=== PATIENT | female | born 1945 | race Caucasian/White ===

== ENCOUNTER 2019-08-20 17:41 | Observation (INO) | payer OTHER ==
--- OUTSIDE RECORDS SUMMARY | 2019-08-20 17:45 | XMS REPORT ---
:1945 [facility] Address [address] [place] [address] Dr. Cabrera[address] [place] [id number] Care Team Providers Name Role Phone Unavailable Unavailable Unavailable Problems This patient has no known problems. Allergies, Adverse Reactions, Alerts This patient has no known allergies or adverse reactions. Medications This patient has no known medications.
--- OUTSIDE RECORDS SUMMARY | 2019-08-20 17:46 | XMS REPORT ---
:1945 Author Organization [employer] Care Team Providers Name Role Phone Lita Camara Provider Role Unavailable Allergies, Adverse Reactions, Alerts Substance Reaction Event Type N.K.D.A. Info Not Available Non Drug Allergy Problems Problem Type Condition Code Onset Dates Condition Status Problem Osteoarthritis involving multiple M15.9 Active joints on both sides of body Problem Controlled diabetes mellitus type E11.9 Active II without complication Problem Disorder of adrenal gland E27.9 Active Problem Spasm of thoracic back muscle M62.830 Active Problem Chronic kidney disease, stage III N18.3 Active (moderate) Assessment Type 2 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 disease Problem Morbid obesity E66.01 Active Problem Acute idiopathic gout of right foot M10.071 Active Problem Abnormal kidney function study R94.4 Active Problem Type 2 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 disease Problem Morbid obesity with body mass index E66.01 Active (BMI) of 40.0 or higher Problem Edema R60.9 Active Problem Atrial fibrillation I48.91 Active Problem SOB (shortness of breath) R06.02 Active Problem Depression F32.9 Active Problem Unsteady gait R26.81 Active Problem Sciatica M54.30 Active Problem Mass of adrenal gland E27.9 Active Problem Iron deficiency anemia D50.9 Active Problem Anticoagulant long-term use Z79.01 Active Problem Liver mass K76.9 Active Medications Medication Code Code Instructions Start End Status Dosage System Date Date Levothyroxine [facility] 85931251416 100 MCG Orally Active 1 tablet Sodium Once a day on an empty stomach in the morning Furosemide ND 67537381192 80 MG Orally Active 1 1/2 Once a day tablet Vitamin D ND 10187969108 2000 UNIT Active 1 tablet Orally Once a day Stool Softener ND 78574512003 100 MG Orally Active 1 capsule Once a day as needed Coumadin ND 12256964662 1 MG Orally Active 1/2 tablet Once a day NovoLIN 70/30 [facility] 25774627313 (70-30) 100 Oct 29, Active 4 units FlexPen UNIT/ML 2018 Subcutaneous BID BuPROPion HCl ER [facility] 53337300096 150MG Orally Active take one (XL) Once a day tablet by mouth once daily GlipiZIDE ND 36339304078 5 MG Orally Active 1 tablet Once a day Spironolactone [facility] 59624032460 25 MG Orally Active 2 tablets Once a day with food Turmeric [facility] 52856257125 500 MG Orally Active not defined Acetaminophen ND 21046675063 500 MG Orally Active 2 capsules tid as needed Allopurinol [facility] 99059822425 100 MG Orally Active 1 tablet Once a day Losartan [facility] 87829070393 25 MG Orally Active 1/2 tablet Potassium Once a day Sotalol HCl [facility] 69305139395 80 MG Orally Active 1 tablet every 12 hrs Coumadin [facility] 51796007899 6 MG Orally Active 1 tablet Once a day Ventolin HFA [facility] 78240570250 108 (90 Base) February 07, Active 2 puffs as MCG/ACT 2018 needed Inhalation every 6 hrs Results Name Result Date Reference Range Unit Abnormality Flag HEMOGLOBIN A1C ----A1C 6.6 [id number] Summary Purpose [employer] Submission
[2019-08-20 18:52] LABS: Absolute Lymphocytes (CBC) 1.5 K/uL (0.7-4.9); Basophils % 0.8 % (0-1.3); Hematocrit 36.8 % (36.0-45.0); Lymphocytes % 24.4 % (15.3-44.8); MPV 9.1 fL (7.6-11.3); RBC Red Blood Cell Count 4.19 M/uL (3.86-4.86)
[2019-08-20 18:53] LABS: Albumin 3.6 g/dL (3.4-5.0); Bilirubin Total 0.4 mg/dL (0.2-1.0); Phosphorus 3.3 mg/dL (2.5-4.9); Potassium 3.7 mmol/L (3.5-5.1); Protein, Total 7.8 g/dL (6.4-8.2)
[2019-08-20] MEDS ORDERED: NA CHLORIDE 0.9% 1,000 ML IV SCH (19:00)
[2019-08-20 19:18] LABS: Urine Appearance CLEAR; Urine Bilirubin NEGATIVE (NEG); Urine Blood NEGATIVE (NEG); Urine Color YELLOW; Urine Glucose NEGATIVE (NEG); Urine Protein NEGATIVE (NEG); Urine Urobilinogen 0.2 mg/dL (0.2-1.0)
--- NOTE | 2019-08-20 19:23 | RAD REPORT ---
EXAM DESCRIPTION: US - Renal Ultrasound-Complete - 08/20/2019 6:57 pm CLINICAL HISTORY: Acute kidney failure COMPARISON: Renal ultrasound April 2019 FINDINGS: The right kidney measures approximately 10 x 6 x 5 cm. The left kidney measures approxima tely 12 x 5 x 4 cm. Renal cortical thickness and echogenicity are normal. No hydronephrosis or suspic ious renal mass. Bladder is fully contracted limiting assessment. IMPRESSION: No hydronephrosis or suspicious renal mass. No other significant findings.
[2019-08-20 19:39] LABS: Urine Bacteria <20 /HPF (<20); Urine Culture Reflex Order NOT NEEDED; Urine RBC NONE SEEN /HPF (NONE SEEN)
[2019-08-20 21:08] VITALS: BMI 44.0
[2019-08-21 04:54] LABS: Albumin 3.4 g/dL (3.4-5.0); Magnesium 2.2 mg/dL (1.8-2.4); Phosphorus 3.9 mg/dL (2.5-4.9); Thyroid Stimulating Hormone 3.27 uIU/mL (0.360-3.740)
[2019-08-21] MEDS ORDERED: MELATONIN 3 MG TABLET PO PRN (07:28)
[2019-08-21] MEDS ORDERED: ACETAMINOPHEN 500 MG TAB PO PRN (07:28)
--- NOTE | 2019-08-21 07:45 | P.HP ---
Certification for Inpatient Patient admitted to: Observation With expected LOS: <2 Midnights Patient will require the following post-hospital care: None Practitioner: I am a practitioner with admitting privileges, knowledge of patient current condition, hospital course, and medical plan of care. Services: Services provided to patient in accordance with Admission requirements found in Title 42 Section 412.3 of the Code of Federal Regulations Patient History Date of Service: 08/20/19 Reason for admission: Acute on chronic kidney disease History of Present Illness: Patient is a 74-year-old female who came to the hospital with acute renal insufficiency. Patient has a history of chronic kidney disease. She has been on diuretics including Lasix and metolazone. Her renal function has fluctuated over the last few months. Her creatinine is elevated and she has significant uremia. She was admitted to the hospital for hydration and for further evaluation. Nephrology has been consulted. Renal ultrasound has been ordered. Patient is feeling well but she states that she has had dysuria and she has been lethargic more so than lately. Allergies No Known Allergies Allergy (Unverified 08/10/12 16:07) Home Medications: Acetaminophen 1,000 mg PO TID 08/20/19 Bupropion HCl [Bupropion Xl] 150 mg PO DAILY 08/20/19 Cholecalciferol (Vitamin D3) [Vitamin D3] 2,000 unit PO DAILY 08/20/19 Docusate Sodium [Stool Softener] 250 mg PO BEDTIME 08/20/19 Furosemide 40 mg PO DAILY 6PM 08/20/19 Furosemide 80 mg PO DAILY 08/20/19 Insulin NPH Hum/Reg Insulin Hm [Novolin 70-30 Flexpen] 11 units SQ BIDWM Levothyroxine [Synthroid*] 0.1 mg PO [id number] 08/20/19 Sotalol HCl [Betapace*] 80 mg PO BID 08/20/19 Turmeric Root Extract [Turmeric Curcumin] 500 mg PO TID 08/20/19 Warfarin Sodium [Coumadin*] 6.5 mg PO BEDTIME 08/20/19 allopurinoL [Allopurinol] 100 mg PO DAILY 08/20/19 metOLazone [Metolazone] 5 mg PO SEECOM 08/20/19 - Past Medical/Surgical History Has patient received pneumonia vaccine in the past: Yes Diabetic: Yes -: DMII -: Sleep Apnea -: CHF -: Atrial fibrillation -: Chronic bronchitis -: Cholecystectomy - Family History Father Medical History: Cancer Mother Medical History: Diabetes, Stroke, Cancer Brother Medical History: Heart disease, Cancer - Social History Smoking Status: Former smoker Alcohol use: No CD- Drugs: No Caffeine use: Yes Place of Residence: Home Review of Systems 10-point ROS is otherwise unremarkable Physical Examination - Vital Signs Temperature: 97.5 F Blood Pressure: 131/53 Pulse: 52 Respirations: 16 Pulse Ox (%): 99 - Physical Exam General: Alert, In no apparent distress, Oriented x3 HEENT: Atraumatic, PERRLA, Mucous membr. moist/pink, EOMI, Sclerae nonicteric Neck: Supple, 2+ carotid pulse no bruit, No LAD, Without JVD or thyroid abnormality Respiratory: Clear to auscultation bilaterally, Normal air movement Cardiovascular: Regular rate/rhythm, Normal S1 S2, No murmurs Gastrointestinal: Normal bowel sounds, Soft and benign, Non-distended, No tenderness Musculoskeletal: No clubbing, No swelling, No tenderness Integumentary: No rashes Neurological: Normal tone, Sensation intact, Cranial nerves 3-12 intact, Normal affect, Abnormal gait, Abnormal strength Lymphatics: No axilla or inguinal lymphadenopathy - Studies Laboratory Data (last 24 hrs) 08/21/19 03:58: Sodium 137, Potassium 3.0 L, BUN 75 H, Creatinine 2.04 H, Glucose 142 H, Phosphorus 3.9, Magnesium 2.2 08/20/19 18:30: Sodium 137, Potassium 3.7, BUN 72 H, Creatinine 2.02 H, Glucose 133 H, Uric Acid 8.0 H, Phosphorus 3.3, Total Bilirubin 0.4, AST 23, ALT 24, Alkaline Phosphatase 79 08/20/19 18:30: WBC 6.3, Hgb 12.3, Hct 36.8, Plt Count 219 Assessment & Plan - Problems (Diagnosis) (1) Acute on chronic renal insufficiency Current Visit: Yes Status: Acute (2) Atrial fibrillation with rapid ventricular response Onset Date: 01/19/15 Current Visit: No Status: Acute (3) Congestive heart failure Current Visit: Yes Status: Acute (4) Type 2 diabetes mellitus Current Visit: Yes Status: Acute (5) Uremia Current Visit: Yes Status: Acute - Plan Plan: 1. Gentle hydration 2. Monitor renal function closely 3. Nephrology consultation 4. Renal ultrasound 5. Monitor urea level and monitor for symptoms of uremia 6. Continue sotalol anti coagulation 7. Strict blood sugar control 8. GI and DVT prophylaxis Discharge Plan: Home Plan to discharge in: Greater than 2 days - Advance Directives Does patient have a Living Will: No Does patient have a Durable POA for Healthcare: No - Code Status/Comfort Care Code Status Assessed: Yes Code Status: Full Code Critical Care: No Time Spent Managing PTS Care (In Minutes): 45
[2019-08-21 07:54] LABS: Urine Protein/Creatinine Ratio 0.12 ratio (<0.15)
--- NOTE | 2019-08-21 07:55 | RAD REPORT ---
EXAM DESCRIPTION: Leslie Single View08/20/2019 11:32 pm CLINICAL HISTORY: shortness of breath COMPARISON: 2018 FINDINGS: The lungs appear clear of acute infiltrate. The heart is normal size IMPRESSION: No acute abnormalities displayed
[2019-08-21] MEDS ORDERED: NPH (HUMAN) 100 UNITS/ML INSULIN SQ SCH (08:00)
[2019-08-21] MEDS ORDERED: BUPROPION HCL XL 150 MG TAB PO SCH (09:00)
[2019-08-21] MEDS ORDERED: VITAMIN D 1000 UNIT TAB PO SCH (09:00)
[2019-08-21] MEDS ORDERED: allopurinoL 100 MG TAB PO SCH (09:00)
[2019-08-21] MEDS ORDERED: SOTALOL HCL 80 MG TAB PO SCH (09:00)
--- NOTE | 2019-08-21 13:37 | P.PN ---
Subjective Date of Service: 08/21/19 Primary Care Provider: Dr. Metzger Chief Complaint: Acute on chronic kidney disease Subjective: Improving Physical Examination - Vital Signs Temperature: 97.3 F Blood Pressure: 127/52 Pulse: 54 Respirations: 18 Pulse Ox (%): 97 - Physical Exam General: Alert, In no apparent distress, Oriented x3, Cooperative HEENT: Atraumatic Neck: Supple Respiratory: Clear to auscultation bilaterally, Normal air movement Cardiovascular: Normal pulses, Regular rate/rhythm Gastrointestinal: Normal bowel sounds, Soft and benign, Non-distended Neurological: Normal speech, Normal strength at 5/5 x4 extr, Normal tone, Normal affect - Studies Laboratory Data (last 24 hrs) 08/21/19 03:58: Sodium 137, Potassium 3.0 L, BUN 75 H, Creatinine 2.04 H, Glucose 142 H, Phosphorus 3.9, Magnesium 2.2 08/20/19 18:30: Sodium 137, Potassium 3.7, BUN 72 H, Creatinine 2.02 H, Glucose 133 H, Uric Acid 8.0 H, Phosphorus 3.3, Total Bilirubin 0.4, AST 23, ALT 24, Alkaline Phosphatase 79 08/20/19 18:30: WBC 6.3, Hgb 12.3, Hct 36.8, Plt Count 219 Medications List Reviewed: Yes Assessment & Plan Discharge Plan: Home Plan to discharge in: 24 Hours Physician Review Additional Text: Impression: Acute on chronic renal failure stage 2 Chronic systolic CHF Atrial fibrillation on chronic anti coagulation therapy Diabetes mellitus type 2 insulin-dependent Hypothyroidism Plan: Acute on chronic renal failure stage 2: Patient admitted Overnite. Continue IV fluids as recommended by nephrology. Diuretic therapy held. Will recheck lab. Case discussed with nephrology. Likely discharge today if improved. Continue monitor closely. Chronic systolic CHF: Diuretic therapy held at this time. Atrial fibrillation on chronic anti coagulation therapy: Continue home medications sotalol and warfarin. Diabetes mellitus type 2 insulin-dependent: Continue basal insulin. Continue to monitor Accu-Cheks. Hypothyroidism: Restart home medication. Time Spent Managing Pts Care (In Minutes): 55
[2019-08-21 14:23] LABS: Potassium 3.2 mmol/L (3.5-5.1)
--- NOTE | 2019-08-21 15:11 | P.DS ---
Admission Date: 08/20/19 Discharge Date: 08/21/19 Primary Care Provider: Yair Camara NP; Nephrology-Dr. Metzger Disposition: ROUTINE DISCHARGE Discharge Condition: GOOD Reason for Admission: Acute on chronic kidney disease Consultations: Nephrology-Dr. Metzger Procedures: CXR: COMPARISON: 2017 FINDINGS: The lungs appear clear of acute infiltrate. The heart is normal size IMPRESSION: No acute abnormalities displayed Renal US: COMPARISON: Renal ultrasound April 2019 FINDINGS: The right kidney measures approximately 10 x 6 x 5 cm. The left kidney measures approximately 12 x 5 x 4 cm. Renal cortical thickness and echogenicity are normal. No hydronephrosis or suspicious renal mass. Bladder is fully contracted limiting assessment. IMPRESSION: No hydronephrosis or suspicious renal mass. No other significant findings. Medical Problem List: Acute on chronic renal failure stage 2 Chronic systolic CHF Atrial fibrillation on chronic anti coagulation therapy Diabetes mellitus type 2 insulin-dependent Hypothyroidism Depression with anxiety Brief History of Present Illness: 74-year-old female presented to the emergency room as a direct admit. Patient has chronic renal disease. Her renal function has fluctuated over the past several months. Nephrology had noted a change. Patient was admitted for hydration and to further evaluate. Hospital Course: Patient presented with acute on chronic renal failure stage 2. Her renal function has fluctuated over the past 6 months. Patient was admitted for IV hydration and further evaluation. Nephrology was consulted. Renal ultrasound unremarkable. Lab shows improvement. At discharge patient will continue with a 1500 cc per day fluid restriction and low-salt diet. Her diuretic therapy will be decreased from Lasix 40 mg in the morning and Lasix 80 mg at night to just Lasix 80 mg daily. Therefore at discharge she will continue with Lasix 80 mg daily. Recommend follow up with nephrology in 1-2 weeks. Recommend to recheck lab-BMP at that time. Recommend no further use of nonsteroidal anti- inflammatories. Future medications will need to be renally dose. Patient with chronic systolic CHF. Diuretic therapy has an adjusted as recommended above. Patient with atrial fibrillation on chronic anti coagulation therapy. This has remained stable. At discharge she will continue with sotalol 80 mg 1 pill twice daily and warfarin 6.5 mg daily. She is to continue have her INR checked by her PCP. Patient with diabetes mellitus type 2 insulin dependent. At discharge she will continue with insulin 70 30 11 units twice daily. Further adjustment can be done by her PCP. Patient with hypothyroidism. At discharge she will continue with her medication levothyroxine 100 mcg daily. Patient with depression. At discharge she will continue with her medication Bupropion XL 150 mg daily. Vital Signs/Physical Exam: Temp Pulse Resp BP Pulse Ox 97.3 F 54 18 127/52 L 97 08/21/19 13:37 08/21/19 13:37 08/21/19 13:37 08/21/19 13:37 08/21/19 13:37 General: Alert, In no apparent distress, Oriented x3, Cooperative HEENT: Atraumatic Neck: Supple Respiratory: Clear to auscultation bilaterally, Normal air movement Cardiovascular: Normal pulses, Regular rate/rhythm Gastrointestinal: Normal bowel sounds, Soft and benign, Non-distended, No tenderness, No masses, No rebound, No guarding Neurological: Normal speech, Normal strength at 5/5 x4 extr, Normal tone Laboratory Data at Discharge: WBC 6.3 K/uL (4.3-10.9) 08/20/19 18:30 Hgb 12.3 g/dL (12.0-15.0) 08/20/19 18:30 Hct 36.8 % (36.0-45.0) 08/20/19 18:30 Plt Count 219 K/uL (152-406) 08/20/19 18:30 Sodium 139 mmol/L (136-145) 08/21/19 13:50 Potassium 3.2 mmol/L (3.5-5.1) L 08/21/19 13:50 BUN 72 mg/dL (7-18) H 08/21/19 13:50 Creatinine 1.74 mg/dL (0.55-1.3) H 08/21/19 13:50 Glucose 176 mg/dL (74-106) H 08/21/19 13:50 Uric Acid 8.0 mg/dL (2.6-6.0) H 08/20/19 18:30 Phosphorus 3.9 mg/dL (2.5-4.9) 08/21/19 03:58 Magnesium 2.2 mg/dL (1.8-2.4) 08/21/19 03:58 Total Bilirubin 0.4 mg/dL (0.2-1.0) 08/20/19 18:30 AST 23 U/L (15-37) 08/20/19 18:30 ALT 24 U/L (12-78) 08/20/19 18:30 Alkaline Phosphatase 79 U/L (45-117) 08/20/19 18:30 Home Medications: Acetaminophen 1,000 mg PO TID 08/20/19 Bupropion HCl [Bupropion Xl] 150 mg PO DAILY 08/20/19 Cholecalciferol (Vitamin D3) [Vitamin D3] 2,000 unit PO DAILY 08/20/19 Docusate Sodium [Stool Softener] 250 mg PO BEDTIME 08/20/19 Furosemide 80 mg PO DAILY 08/20/19 Levothyroxine [Synthroid*] 0.1 mg PO [id number] 08/20/19 Sotalol HCl [Betapace*] 80 mg PO BID 08/20/19 Turmeric Root Extract [Turmeric Curcumin] 500 mg PO TID 08/20/19 Warfarin Sodium [Coumadin*] 6.5 mg PO BEDTIME 08/20/19 allopurinoL [Allopurinol] 100 mg PO DAILY 08/20/19 metOLazone [Metolazone] 5 mg PO SEECOM 08/20/19 Insulin 70/30 NPH/Reg Human [Novolin 70/30*] 11 unit SQ BIDWM 08/21/19 Patient Discharge Instructions: 1. Recommend follow up with PCP in 1 week to follow up this hospitalization. 2. Patient presented with acute on chronic renal failure stage 2. Her renal function has fluctuated over the past 6 months. Patient was admitted for IV hydration and further evaluation. Nephrology was consulted. Renal ultrasound unremarkable. Lab shows improvement. At discharge patient will continue with a 1500 cc per day fluid restriction and low-salt diet. Her diuretic therapy will be decreased from Lasix 40 mg in the morning and Lasix 80 mg at night to just Lasix 80 mg daily. Therefore at discharge she will continue with Lasix 80 mg daily. Recommend follow up with nephrology in 1-2 weeks. Recommend to recheck lab-BMP at that time. Recommend no further use of nonsteroidal anti-inflammatories. Future medications will need to be renally dose. 3. Patient with chronic systolic CHF. Diuretic therapy has an adjusted as recommended above. 4. Patient with atrial fibrillation on chronic anti coagulation therapy. This has remained stable. At discharge she will continue with sotalol 80 mg 1 pill twice daily and warfarin 6.5 mg daily. She is to continue have her INR checked by her PCP. 5. Patient with diabetes mellitus type 2 insulin dependent. At discharge she will continue with insulin 70 30 11 units twice daily. Further adjustment can be done by her PCP. 6. Patient with hypothyroidism. At discharge she will continue with her medication levothyroxine 100 mcg daily. 7. Patient with depression. At discharge she will continue with her medication Bupropion XL 150 mg daily. Diet: ADA Activity: Ad sebas Time spent managing pt's care (in minutes): 55
[2019-08-21 16:02] VITALS: BP 114/53; TEMP 97
[2019-08-21] MEDS ORDERED: WARFARIN SODIUM 4 MG TAB PO SCH (21:00)
[2019-08-21] MEDS ORDERED: DOCUSATE NA 100 MG CAP PO SCH (21:00)
[2019-08-21] MEDS ORDERED: WARFARIN SODIUM 2.5 MG TAB PO SCH (21:00)
[2019-08-21] MEDS ORDERED: WARFARIN SODIUM 6 MG TAB PO SCH (21:00)
--- NOTE | 2019-08-22 04:27 | CON ---
Date of Consultation: 08/21/2019 Reason For Consultation: Elevated BUN and creatinine, fluid management. History Of Present Illness: This is a pleasant, 74-year-old female with significant past medical history of hypertension, hyperlipidemia, chronic kidney disease stage 4 secondary to hypertension, nephrosclerosis, cardio renal. Patient's baseline creatinine around 1.7 . Patient apparently had worsening kidney function over the last couple of months from 1.7 -2, currently 2.4. Patient denied taking any nonsteroidal. No IV contrast. Past Medical History: 1. Hypertension. 2. Hyperlipidemia. 3. Diabetes. 4. Coronary artery disease. Social History: Denies smoking. Denies drinking. Denies drugs abuse. Allergies: NO KNOWN DRUG ALLERGIES. Past Surgical History: Noncontributory. Review of Systems: Head and Neck: No red eye. No ear pain. GI: No nausea, no vomiting. : No polyuria, no dysuria, no hematuria. Stable Attendant: No vaginal discharge. Neurological: Has neuropathy. Musculoskeletal: No joint pain. Physical Examination: Vital Signs: Blood pressure 114/53, pulse of 53, afebrile. Chest: Clear to auscultation. Heart: S1, S2. Systolic murmur. Abdomen: Soft, morbidly obese. Extremities: +2 edema. Neurological: Alert and oriented x3. No focal. Laboratory Data: Patient's baseline creatinine 1.7. WBC 6.3, H and H of 12.3/ 36.8, platelet 219. Patient's eosinophil is WNL. Sodium 139, potassium 3.2, bicarb 32, BUN 72, creatinine 1.7, calcium 8.1. Assessment And Plan: 1. Acute kidney injury secondary to prerenal over diuresed after holding the Lasix and start her on IV fluid. Kidney function has been improved back to baseline. We will follow up this workup . 2. Hypertension, controlled, optimal, but losing the momentum. We will accept slight swelling of the leg in favor of establishing better kidney function. I am going to keep holding the Lasix for today. 3. Edema secondary to venous stasis. Given the acute kidney injury, keep holding the Lasix. We will monitor. 4. Anemia of chronic kidney disease as by primary. 5. Lymphedema, peripheral edema, mostly secondary to lymphedema. I am going to be cautious with the diuresis. I am going to go ahead and decrease her Lasix starting by tomorrow. 6. Acute kidney injury secondary to over diuresis, as above. Continue hydration. Keep holding Lasix. Plan to resume Lasix tomorrow and hold IV fluid. Patient cleared from the Renal standpoint for discharge planning. SELENA Voice ID: [id number] Report ID: [id number]
[2019-08-22] MEDS ORDERED: LEVOTHYROXINE SOD 0.1 MG TAB PO SCH (06:00)
== END 2019-08-21 17:55 | disposition home or self-care (01) ==
LOC: 4TH 17:41
PROVIDERS: ADMIT Hospitalist; ATTEND Hospitalist
DX: N17.9 Acute kidney failure, unspecified (principal); I13.0 Hypertensive heart and chronic kidney disease with heart failure and stage 1 through stage 4 chronic kidney disease, or unspecified chronic kidney disease; E11.22 Type 2 diabetes mellitus with diabetic chronic kidney disease; N18.2 Chronic kidney disease, stage 2 (mild); I50.22 Chronic systolic (congestive) heart failure; D63.1 Anemia in chronic kidney disease; I48.91 Unspecified atrial fibrillation; G47.30 Sleep apnea, unspecified; E03.9 Hypothyroidism, unspecified; F41.8 Other specified anxiety disorders; Z79.01 Long term (current) use of anticoagulants
CPT/HCPCS: 85025; 81001; 80048; 36415 ×2; 83735; 82550 ×2; 84100; 82947 ×4; 84550; 80069; 84443; 82570; 80053; 84156; 71045; 76770; G0379; J7030; G0378 ×3